=== PATIENT | female | born 1975 | race Caucasian/White ===

== ENCOUNTER 2016-08-10 15:00 | Emergency (ER) | payer SELFPAY ==
--- NOTE | 2016-08-19 18:52 | ER ---
ADMIT: 08/10/2016 RM/LOC: ER [facility] MR#: [id number] [address] [id number] JEAN-PAUL ALVARADO [address] [place] [id number] Emergency Room Report SEX: F AGE: 40 : 1975 DATE: 08/10/2016 ADDENDUM: This patient comes into the ER because she has had abdominal pain on off for the last month. It became severe today. It is on the epigastric going to the left side down her left back and in the left side of her belly. She has nausea and vomiting. No diarrhea and feels like she has a lot of gas. CBC, BMP, and UA were negative. CT of her abdomen and pelvis was also negative. IV of normal saline was started. She was given a liter of bolus with morphine, Zofran, and Toradol when I went to re-evaluate her, she was feeling better. I wrote a prescription for Zantac and tramadol, and she should follow up with Dr. Avalos in the next week if not better. Please see my T-sheet. LUCÍA Perkins / Ata Lloyd MD / thao JOB #: [id number] CC: Ata Lloyd MD, Attending Physician Russell Avalos MD, Family Physician
== END 2016-08-10 19:13 | disposition home or self-care (01) ==
LOC: ER 15:00
DX: R10.13 Epigastric pain (principal)